=== PATIENT | male | born 1990 | race Caucasian/White ===

== ENCOUNTER 2019-05-26 14:15 | Outpatient (RCR) | payer OTHER ==
[~2019-05-26] VITALS: Ht 185.4 cm; Wt 103.4 kg
[2019-06-09 17:42] VITALS: BP 132/81; PULSE 66; TEMP 98.2
== END 2019-08-24 | disposition home or self-care (01) ==
LOC: EUO
DX: Z79.899 Other long term (current) drug therapy (principal)
CPT/HCPCS: 90375

== ENCOUNTER → 2021-12-20 | Outpatient (CLI) | payer OTHER | LOC: COL.RAD 12:58 | DX: N50.812 Left testicular pain (principal); N50.89 Other specified disorders of the male genital organs ==